=== PATIENT | male | born 1950 | race Caucasian/White ===

== ENCOUNTER 2024-04-14 13:26 | Emergency (ER) | payer MEDICARE, SELFPAY ==
[2024-04-14 13:30] VITALS: BP 140/70; PULSE 63; TEMP 37; O2SAT 100; BMI 22.5
--- NOTE | 2024-04-14 13:42 | XR_ITS ---
The [address] [address] Patient Name: CHRISTIAN CHEEMA MRN: [id number] date: 1950 Sex: M Assigned Patient Location: ER Current Patient Location: ER Accession/Order Number: [id number] Exam Date: 04/14/2024 13:50 Report Date: 04/14/2024 14:27 At the request of: DONNA CAMARGO Procedure: XR hip LT 2V w/ pelvis PROCEDURE: XR hip LT 2V w/ pelvis HISTORY: pain, fall ; left hip pain COMPARISON: None. FINDINGS: BONES:No fracture, dislocation, bone lesion. Mild degenerative change of the hip joints. Mechanical fusion of the visible lower lumbar spine. SOFT TISSUES:Numerous surgical anchors projecting over right side of pelvis. EFFUSION:None visible. OTHER: Negative. XR/XR hip LT 2V w/ pelvis IMPRESSION: 1. No acute bone abnormality. 2. Minimal degenerative changes of the hip joints. Electronically authenticated by: CELESTE ZAPIEN Date: 04/14/2024 14:27
--- NOTE | 2024-04-14 13:44 | ED_ITS ---
HPI HPI - Extremity Injury (Lower) General Chief Complaint: Extremity Injury, Lower Stated Complaint: FALL, LOWER EXTREMITY PAIN Time Seen by Provider: 04/14/24 13:37 Mode of arrival: walk-in History of Present Illness HPI Narrative: 73 year old male presents to the ED for left hip pain s/p slip and fall today on ice. He landed on his left hip. Denies hitting his head and LOC. Denies pain to his neck, back, knees. 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 He took Tylenol [employer]; he declined medication for discomfort here. Related Data Home Medications ?Medication ?Instructions ?Recorded ?Confirmed buspirone 10 mg tablet 10 mg PO Q12H 04/14/24 04/14/24 citalopram 20 mg tablet 20 mg PO DAILY 04/14/24 04/14/24 empagliflozin 25 mg tablet 12.5 mg PO DAILY 04/14/24 04/14/24 (Jardiance) ezetimibe 10 mg tablet 10 mg PO DAILY 04/14/24 04/14/24 isosorbide mononitrate 30 mg 30 mg PO DAILY 04/14/24 04/14/24 tablet,extended release 24 hr lorazepam 1 mg tablet 1 mg PO DAILY PRN anxiety 04/14/24 04/14/24 rosuvastatin 5 mg tablet 5 mg PO DAILY 04/14/24 04/14/24 tirzepatide 2.5 mg/0.5 mL 2.5 mg subcut .weekly 04/14/24 04/14/24 subcutaneous pen injector (Mounjaro) Previous Rx's ?Medication ?Instructions ?Recorded tizanidine 2 mg capsule (Zanaflex) 2 mg PO BID PRN pain, muscle 04/14/24 spasms #10 caps Allergies Allergy/AdvReac Type Severity Reaction Status Date / Time No Known Drug Allergies Allergy Verified 04/14/24 13:30 Opioid HPI Opioid Management Most Recent Pain and Opioid Data: No Data to Display Review of Systems ROS Constitutional Denies: fever or chills Ears, nose, mouth, and throat Denies: neck pain Cardiovascular Denies: chest pain Respiratory Denies: shortness of breath Gastrointestinal Denies: abdominal pain Musculoskeletal Reports: extremity pain and joint pain; Denies: back pain or neck pain Integumentary/Breast Denies: rash or redness Neurological Denies: headache, weakness in extremities or dizziness PFSH PFSH Social History Little interest or pleasure in doing things: not at all Feeling down, depressed, or hopeless: not at all Exam Constitutional Vital Signs, click to edit/add: Last Vital Signs Temp 98.6 F 04/14/24 13:30 Pulse 63 04/14/24 13:30 Resp 18 04/14/24 13:30 BP 140/70 04/14/24 13:30 Pulse Ox 100 04/14/24 13:30 O2 Del Method Room Air 04/14/24 13:30 Common normals: no apparent distress and oriented x3 General appearance: cooperative Eye Common normals: conjunctivae normal and no scleral icterus Neck & C-Spine Common normals: supple Cervical spine: no cervical spine tenderness, no paracervical muscle tenderness and no paracervical muscle spasm Chest Chest: symmetrical chest wall rise Respiratory Common normals: normal respiratory effort Effort & inspection: able to speak in complete sentences and symmetric chest movement Cardio Common normals: regular rate Peripheral pulses: posterior tibial pulses present and dorsalis pedis pulses present Back & Pelvis Thoracic spine/upper back: normal to inspection; no thoracic spinal tenderness, no paraspinal muscle tenderness and no paraspinal muscle spasm Lumbar spine/lower back: normal to inspection; no lumbar spinal tenderness, no paraspinal muscle tenderness and no paraspinal muscle spasm Extremity Left lower extremity: hip joint Left hip: inspection (No obvious deformity.) and palpation (Lateral tenderness.) Neuro Common normals: oriented x3 and moves all extremities Sensorium/orientation: awake and alert Speech: speech normal Course Vital Signs Vital signs: Vital Signs Temperature 98.6 F 04/14/24 13:30 Pulse Rate 63 04/14/24 13:30 Respiratory Rate 18 04/14/24 13:30 Blood Pressure 140/70 04/14/24 13:30 Pulse Oximetry 100 04/14/24 13:30 Oxygen Delivery Method Room Air 04/14/24 13:30 Temperature 98.6 F 04/14/24 13:30 Pulse Rate 63 04/14/24 13:30 Respiratory Rate 18 04/14/24 13:30 Blood Pressure 140/70 04/14/24 13:30 Pulse Oximetry 100 04/14/24 13:30 Oxygen Delivery Method Room Air 04/14/24 13:30 MDM - Extremity Injury (Lower) MDM Narrative Medical decision making narrative: Imaging showed no acute bony abnormality. Findings were discussed. Pt declined opiates. He has Tylenol at home. A prescription was provided for Zanaflex. Follow up with pcp for a recheck, further evaluation and treatment. Differential Diagnosis Differential diagnosis: Likely fracture of hip and other (Hip contusion, sprain, strain) Medical Records Attestation: I reviewed the patient's medical records. Imaging Data XR: Attestation: I have reviewed the pertinent imaging results. Radiologist's impression: ITS Impressions Hip/Pelvis X-Ray 04/14/24 13:42 IMPRESSION: 1. No acute bone abnormality. 2. Minimal degenerative changes of the hip joints. Electronically authenticated by: CELESTE ZAPIEN Date: 04/14/2024 14:[address] 04/14/24 14:41 IMPRESSION: 1 no acute bone abnormality. 2. Minimal degenerative changes. Electronically authenticated by: CELESTE ZAPIEN Date: 04/14/2024 15:22 Discharge Plan Discharge Chief Complaint: Extremity Injury, Lower Clinical Impression: Fall, Contusion of hip, left Patient Disposition: Home, Self-Care Time of Disposition Decision: 15:27 Condition: Good Mode of Transportation: Private Vehicle Prescriptions / Home Meds: New tizanidine [Zanaflex] 2 mg capsule 2 mg PO BID PRN (Reason: pain, muscle spasms) Qty: 10 0RF No Action buspirone 10 mg tablet 10 mg PO Q12H citalopram 20 mg tablet 20 mg PO DAILY Jardiance 25 mg tablet 12.5 mg PO DAILY ezetimibe 10 mg tablet 10 mg PO DAILY isosorbide mononitrate 30 mg tablet extended release 24 hr 30 mg PO DAILY lorazepam 1 mg tablet 1 mg PO DAILY PRN (Reason: anxiety) rosuvastatin 5 mg tablet 5 mg PO DAILY Mounjaro 2.5 mg/0.5 mL pen injector 2.5 mg SUBCUT .weekly Print Language: Yakut Instructions: Hip Contusion (ED) Additional Instructions: Return to the ER for worsening symptoms. Referrals: [facility] [Primary Care Provider] - 1 week
--- NOTE | 2024-04-14 14:41 | CT_ITS ---
[address] [address] Patient Name: CHRISTIAN CHEEMA MRN: [id number] date: 1950 Sex: M Assigned Patient Location: ER Current Patient Location: ER Accession/Order Number: [id number] Exam Date: 04/14/2024 14:47 Report Date: 04/14/2024 15:22 At the request of: AMERICA MARCANO Procedure: CT hip LT wo con EXAMINATION: CT hip LT wo con HISTORY: fall COMPARISON: XR hip left 04/14/2024 TECHNIQUE: Multi-planar CT images were created without and/or with IV contrast according to examination type. Dose reduction techniques were achieved by using automated exposure control and/or adjustment of mA and/or kV according to patient size and/or use of iterative reconstruction technique. FINDINGS: BONES: No fracture, dislocation, bone lesion. No significant joint space narrowing or periarticular degenerative osteophytes. SOFT TISSUES: Negative. No visible soft tissue swelling. EFFUSION: None visible. OTHER: Negative. CT/CT hip LT wo con IMPRESSION: 1 no acute bone abnormality. 2. Minimal degenerative changes. Electronically authenticated by: CELESTE ZAPIEN Date: 04/14/2024 15:22
== END 2024-04-14 15:44 | disposition home or self-care (01) ==
PROVIDERS: Emergency Provider Emergency Medicine; PCP Family Medicine
DX: S70.02XA Contusion of left hip, initial encounter (principal); W00.0XXA Fall on same level due to ice and snow, initial encounter
CPT/HCPCS: 73502; 73700; 99284